=== PATIENT | female | born 1990 | race Caucasian/White ===

== ENCOUNTER 2019-11-18 13:10 | Emergency (ER) | payer MEDICAID, OTHER ==
[~2019-11-18] VITALS: Ht 172.7 cm; Wt 55.8 kg
[2019-11-18 13:17] VITALS: BP 117/76
== END 2019-11-18 15:26 | disposition home or self-care (01) ==
LOC: ER 13:10
DX: M77.8 Other enthesopathies, not elsewhere classified (principal)
CPT/HCPCS: 73130

== ENCOUNTER 2021-04-19 09:53 | Emergency (ER) | payer MEDICAID ==
[~2021-04-19] VITALS: Ht 172.7 cm; Wt 63.5 kg
[2021-04-19 10:44] VITALS: BP 117/80
== END 2021-04-19 11:35 | disposition home or self-care (01) ==
LOC: ER 09:53
DX: T17.1XXA Foreign body in nostril, initial encounter (principal); Z88.6 Allergy status to analgesic agent; W22.8XXA Striking against or struck by other objects, initial encounter; Y93.89 Activity, other specified; Y92.89 Other specified places as the place of occurrence of the external cause; Y99.8 Other external cause status
CPT/HCPCS: 69200